=== PATIENT | female | born 1950 | race Caucasian/White ===

== ENCOUNTER 2025-04-07 18:27 | Inpatient (IN) | payer OTHER ==
--- OUTSIDE RECORDS SUMMARY | 2025-04-07 18:31 | XMS REPORT | Continuity of Care Document ---
Author Name Unknown Address [address] [facility] [address] [place] [address] [facility] Address [address] [facility] [place] [address] Care Team Providers Care [employer] Manager Name Role Phone Kirby Cain DO Primary Care Physician + [phone] Meera Judge Attending Clinician Unavaila ble GC_GCBZW_Kaedwin_S Attending Clinician Jonathana KIRBY Lamas Attending Clinician Unavailable Pob, [facility] Main Attending Clinician Richmond Cee MD Attending Clinician RICHMOND CHAKRABORTY Attending Clinician Meera Deal Admitting Clinician Unavaila nia GC_GCBZW_Kaedwin_S Admitting Clinician Valente kramer Payers Payer Name Policy Type Policy Number Effective Date Expirati on Date Source HUMA[employer] (PPO) [id number] [employer] (MEDICARE REPLACEMENT/ADVANTAGE - PPO) [id number] Problems Condition Name Condition Details Condition Category Status Onset Date Resolution Date Last Treatment Date Treating Clinician Comments Source 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 Active 2023-09 0 00:00: 00 [facility] Incomplete uterovagin al prolapse Incomplete Uterovagin al Prolapse Problem Active 7- 00:00: 00 [facility] Atrophic vaginitis Atrophic Vaginitis Problem Active 7 00:00: 00 [facility] Endometria l polyp Endometria l Polyp Problem Active 7 00:00: 00 [facility] Polyp of corpus uteri Polyp of Corpus Uteri Problem Active 7 00:00: 00 [facility] Abnormal uterine bleeding Abnormal Uterine Bleeding Problem Active 3- 00:00: 00 [facility] Postmenopa usal bleeding Postmenopa usal Bleeding Problem Active 3- 00:00: 00 [facility] Abdominal bloating Abdominal Bloating Problem Active 3 00:00: 00 [facility] Urge incontinen ce of urine Urge Incontinen ce of Urine Problem Active 3 00:00: 00 [facility] Increased frequency of urination Increased Frequency of Urination Problem Active 3 00:00: 00 [facility] Fecal incontinen ce with fecal urgency Fecal Incontinen ce with Fecal Urgency Problem Active 3 00:00: 00 [facility] Hyperlipid emia Hyperlipid emia Problem Active 3 00:00: 00 [facility] Essential hypertensi on Essential Hypertensi on Problem Active 3 00:00: 00 [facility] Hypertensi ve disorder Hypertensi ve Disorder Problem Active 3 00:00: 00 [facility] Genuine stress incontinen ce Genuine Stress Incontinen ce Problem Active 3 00:00: 00 [facility] N64.52 - NIPPLE DISCHARGE N64.52 - NIPPLE DISCHARGE Active 04/07/2018 Charisse Ramirez Diagnosis Active - 00:01: 00 2018-04-18 09:11:00 Nafisa Ramirez Allergies, Adverse Reactions, Alerts Allergy Name Allergy Type Status Severity Reaction(s) Onset Date Inactive Date Treating Clinician Comments Source No Known Allergie s DA Active U 0 8- 00:00: 00 [facility] NO KNOWN ALLERGIE S Drug Class Active [facility] Social History Social Habit Start Date Stop Date Quantity Comments Source Gender identity [facility] Sex Assigned At 1950 00:00:00 1950 00:00:00 [facility] Smoking Status Start Date Stop Date Source Never Smoker [facility] Tobacco smoking consumption unknown [facility] Medications Ordered Medication Name Filled Medication Name Start Date Stop Date Current Medication? Ordering Clinician Indication Dosage Frequency Signature (SIG) Comments Components Source atorvastati n 40 mg tablet atorvastati n 40 mg tablet No atorvastat in 40 mg tablet [facility] furosemide 20 mg tablet TAKE 1 TABLET BY MOUTH ONCE DAILY FOR DEPENDENT EDEMA furosemide 20 mg tablet TAKE 1 TABLET BY MOUTH ONCE DAILY FOR DEPENDENT EDEMA No furosemide 20 mg tablet TAKE 1 TABLET BY MOUTH ONCE DAILY FOR DEPENDENT EDEMA [facility] metoprolol succinate ER 25 mg tablet,exte nded release 24 hr metoprolol succinate ER 25 mg tablet,exte nded release 24 hr No metoprolol succinate ER 25 mg tablet,ext ended release 24 hr [facility] pantoprazol e 40 mg tablet,rowena yed release pantoprazol e 40 mg tablet,rowena yed release No pantoprazo le 40 mg tablet,del ayed release [facility] Stool Softener Stool Softener No Stool Softener [facility] estradiol 0.01% (0.1 mg/gram) vaginal cream Insert 0.5 g 3 times a week by vaginal route for 90 days. estradiol 0.01% (0.1 mg/gram) vaginal cream Insert 0.5 g 3 times a week by vaginal route for 90 days. No .5g Q56H estradiol 0.01% (0.1 mg/gram) vaginal cream Insert 0.5 g 3 times a week by vaginal route for 90 days. [facility] amlodipine 5 mg-benazepr il 20 mg capsule amlodipine 5 mg-benazepr il 20 mg capsule No amlodipine 5 mg-benazep ril 20 mg capsule [facility] Vital Signs Vital Name Observation Time Observation Value Comments S don Body Weight 2024-09-11 00:00:00 212 [lb_av] [facility] BMI (Body Mass Index) 2024-09-11 00:00:00 41.4 kg/m2 [facility] Height 2024-09-11 00:00:00 60 [in_i] [facility] BP Systolic 2024-09-11 00:00:00 143 mm[Hg] [facility] BP Diastolic 2024-09-11 00:00:00 93 mm[Hg] [facility] BP Systolic 2024-06-05 00:00:00 151 mm[Hg] [facility] BP Diastolic 2024-06-05 00:00:00 69 mm[Hg] [facility] Height 2024-06-05 00:00:00 60 [in_i] [facility] Body Weight 2024-06-05 00:00:00 208 [lb_av] [facility] BMI (Body Mass Index) 2024-06-05 00:00:00 40.6 kg/m2 [facility] Height 2024-05-10 00:00:00 60 [in_i] [facility] Body Weight 2024-05-10 00:00:00 208 [lb_av] [facility] BMI (Body Mass Index) 2024-05-10 00:00:00 40.6 kg/m2 [facility] BP Systolic 2024-05-10 00:00:00 171 mm[Hg] [facility] BP Diastolic 2024-05-10 00:00:00 73 mm[Hg] [facility] Height 2024-04-04 00:00:00 60 [in_i] [facility] BMI (Body Mass Index) 2024-04-04 00:00:00 40.6 [facility] 2024-04-04 00:00:00 208 [lb_av] [facility] BP Diastolic 2024-03-16 00:00:00 75 mm[Hg] [facility] Height 2024-03-16 00:00:00 60 [in_i] [facility] BP Systolic 2024-03-16 00:00:00 127 mm[Hg] [facility] Body Weight 2024-03-16 00:00:00 208 [lb_av] [facility] BMI (Body Mass Index) 2024-03-16 00:00:00 40.6 kg/m2 [facility] BP Diastolic 2023-12-09 00:00:00 77 mm[Hg] [facility] BMI (Body Mass Index) 2023-12-09 00:00:00 40.8 kg/m2 [facility] Height 2023-12-09 00:00:00 60 [in_i] [facility] BP Systolic 2023-12-09 00:00:00 182 mm[Hg] [facility] Body Weight 2023-12-09 00:00:00 209 [lb_av] [facility] Height 2023-12-02 00:00:00 60 [in_i] [facility] BP Diastolic 2023-12-02 00:00:00 70 mm[Hg] [facility] BMI (Body Mass Index) 2023-12-02 00:00:00 41 kg/m2 [facility] BP Systolic 2023-12-02 00:00:00 140 mm[Hg] [facility] Body Weight 2023-12-02 00:00:00 209.8 [lb_av] [facility] BP Systolic 2023-11-30 00:00:00 144 mm[Hg] [facility] Height 2023-11-30 00:00:00 60 [in_i] [facility] Body Weight 2023-11-30 00:00:00 210.2 [lb_av] [facility] BP Diastolic 2023-11-30 00:00:00 70 mm[Hg] [facility] BMI (Body Mass Index) 2023-11-30 00:00:00 41.1 kg/m2 [facility] Procedure Date / Time Performed Performing Clinician Source Hysterectomy 2024-04-30 00:00:[address] [facility] [address] [address], abdomen + pelvis, w/wo contrast 2023-12-05 00:00:00 [facility] US, transvaginal 2023-12-01 00:00:00 [facility] PHOSPHORUS 2023-04-06 15:30:00 Kirby Cain [facility] URIC ACID 2023-04-06 15:30:00 Kirby Cain [facility] MAGNESIUM 2023-04-06 15:30:00 Kirby Cain [facility] COMP. METABOLIC PANEL ([id number]) 2023-04-06 15:30:00 Kirby Cain [facility] URINALYSIS 2023-04-06 15:30:00 Kirby Cain [facility] PROTEIN CREAT RATIO URINE RANDOM 2023-04-06 15:30:00 Kirby Cain [facility] Tubal Ligation 1981-09-05 00:00:00 [facility] Tonsillectomy [facility] Appendectomy [facility] Encounters Start Date/Time End Date/Time Encounter Type Admission Type Attending [facility] Care Department Encounter ID Source 2024-09-11 00:00:00 2024-09-11 00:00:00 Meera Judge MD: [address], [place] [id number] , Ph. [facility] - GC_GCBZW_Nelly Florez* [id number] [facility] 2024-06-05 00:00:00 2024-06-05 00:00:00 Meera Judge MD: [address], [place] [id number] , Ph. [facility] GC_GCBZW_Nelly Florez* [id number] [facility] 2024-05-10 00:00:00 2024-05-10 00:00:00 NELY Holley: [address], [place] [address] , Ph. [facility] - GC_GCBZW_Nelly Florez* [id number] [facility] 2024-04-30 10:35:00 2024-04-30 10:35:00 Outpatient Meera Stubbs [facility] CINDY [id number] [facility] 2024-04-04 00:00:00 2024-04-04 00:00:00 Meera Judge MD: [address], [place] [address] , Ph. [facility] - GC_GCBZW_Nelly Florez* [id number] [facility] 2024-03-16 00:00:00 2024-03-16 00:00:00 Meera Judge MD: [address], [place] [id number] , Ph. [facility] - GC_GCBZW_Nelly [place]is [place]* [id number] [facility] 2023-12-09 00:00:00 2023-12-09 00:00:00 Meera Judge MD: [address], [place] [address] , Ph. GC_GCBZW_Ka diyala_S [facility] - GC_GCBZW_Nelly [place]* [id number] [facility] 2023-12-05 00:00:00 2023-12-05 00:00:00 Outpatient GC_GCBZW_Ka diyala_S PRIV PRIV [id number] [facility] 2023-12-04 00:00:00 2023-12-04 00:00:00 Outpatient GC_GCBZW_Ka diyala_S PRIV PRIV [id number] [facility] 2023-12-02 00:00:00 2023-12-02 00:00:00 Meera Judge MD: [address], [place] [id number] , Ph. GC_GCBZW_Ka diyala_S [facility] - GC_GCBZW_Nelly paris [place]* [id number] [facility] 2023-12-01 00:00:00 2023-12-01 00:00:00 Meera Judge MD: [address], [place] [id number] , Ph. GC_GCBZW_Ka diyala_S [facility] - GC_GCBZW_Nelly [place]* [id number] [facility] 2023-11-30 00:00:00 2023-11-30 00:00:00 Meera Judge MD: [address], [place] [address] , Ph. GC_GCBZW_Ka chrisa_S [facility] - GC_GCBZW_Nelly Florez* [id number] [facility] 2023-11-25 00:00:00 2023-11-25 00:00:00 Outpatient GC_GCBZW_Ka chrisa_S [facility] [id number] [facility] 2023-04-06 10:00:00 2023-04-06 10:15:00 Early Childhood Specialist Visit [place], [facility] [place] [facility] [id number] [facility] 2023-04-06 10:00:00 2023-04-06 10:00:00 Outpatient Kezia RICHMOND CHAKRABORTY [facility] [id number] [facility] Results Test Description Test Time Test Comments Results Result Co mments Source COMPREHENSIVE METABOLIC [id number] 11:01:00* Test Item Value Reference Range Interpretation Comme nts SODIUM (test code = NA) 143 mmol/L 136-145 N POTASSIUM (test code = K) 4.4 mmol/L 3.4-5.0 N CHLORIDE (test code = CL) 106 mmol/L 98-107 N CARBON DIOXIDE (test code = CO2) 31 mmol/L 21-32 N ANION GAP (test code = GAP) 6 GAP calc 4-15 N GLUCOSE (test code = GLU) 95 MG/DL 70-110 N BLOOD UREA NITROGEN (test code = BUN) 19 MG/DL 7-18 H GLOMERULAR FILTRATION RATE (test code = GFR) 43 estGFR >60 L The Glomerular Filtration Rate is a calculated parameterbased on serum Creatinine, patient age and sex. GFR valuesless than 60 mL/min/1.73 square meters are indicative ofChronic Kidney Disease. Values less than 15 mL/min/1.73square meters indicate Kidney failure. The calculation forGFR is based on the CKD-EPI (202) calculation. This formulais race indifferent and is the recommended formula for GFRby the National Kidney Foundation for Adults.The GFR will not calculate if the sex is unknown or if thepatient's age is <18 years. CREATININE (test code = CREAT) 1.3 MG/DL 0.6-1.0 H TOTAL PROTEIN (test code = PROT) 7.4 G/DL 6.4-8.2 N ALBUMIN (test code = ALB) 3.8 G/DL 3.4-5.0 N GLOBULIN (test code = GLOB) 3.6 GM/dL ALBUMIN/GLOBULIN RATIO (test code = A/G) 1.1 RATIO 1.2-2.2 L CALCIUM (test code = CA) 10.0 MG/DL 8.5-10.1 N BILIRUBIN TOTAL (test code = BILT) 0.7 MG/DL 0.0-1.0 N SGOT/AST (test code = AST) 17 Unit/L 15-37 N SGPT/ALT (test code = ALT) 19 Unit/L 30-65 L ALKALINE PHOSPHATASE TOTAL (test code = ALKP) 137 Unit/L 50-136 H PROTHROMBIN [id number] 10:59:00* Test Item Value Reference Range Interpretation Comme nts PT PATIENT (test code = PTP) 11.3 SECONDS 9.3-12.9 N INTERNATIONAL NORMAL RATIO (test code = INR) 1.03 INR Unit 0.8-1.2 N TARGET INR BY INDICATION Indication INR1. Prophylaxis of venous thrombosis 2.0 - 3.0 (orthopedic surgery), Prophylaxis of venous thrombosis (other than high-risk surgery), Treatment of Deep Vein Thrombosis/Pulmonary Embolism, Prevention of systemic embolism - Tissue heart valves, Acute Myocardial Infarction (to prevent systemic embolism), Valvular heart disease, Acute Myocardial Infarction (to prevent systemic embolism), Valvular heart disease, Atrial Fibrillation, Bileaflet mechanical valve in aortic position.2. Mechanical prosthetic valves (high risk), 2.5 - 3.5 Presence of Lupus Anticoagulant or Antiphospholipid Antibodies, Prevention of systemic embolism - Acute Myocardial Infarction (to prevent recurrent infarct). Comment: MD MORILLO ORDERTHROMBOPLASTIN TIME [id number] 10:59:00* Test Item Value Reference Range Interpretation Comme nts THROMBOPLASTIN TIME PARTIAL (test code = PTT) 34.8 SECONDS 26-35 N Comment: MD MORILLO ORDERURINALYSIS [id number] 10:49:00* Test Item Value Reference Range Interpretation Comme nts UA GLUCOSE DIPSTICK (test code = DGLUU) Negative mg/dL NEGATIVE UA BILIRUBIN DIPSTICK (test code = BILU) Negative NEGATIVE UA KETONE DIPSTICK (test code = KETU) Negative NEGATIVE UA SPECIFIC GRAVITY (test code = SGU) 1.020 1.005-1.015 A UA BLOOD DIPSTICK (test code = KIM) Negative NEGATIVE UA PH DIPSTICK (test code = BAM) 5.5 5.0-7.0 UA PROTEIN DIPSTICK (test code = PROU) Negative mg/dL NEGATIVE UA UROBILINIOGEN DIPSTICK (test code = URO) 0.2 EU/dL See_Comment [Automated message] The system which generated this result transmitted reference range: <2.0 EU/dL. The reference range was not used to interpret this result as normal/abnormal. UA NITRITE DIPSTICK (test code = LAVELL) Negative NEGATIVE UA LEUKOCYTE ESTERASE DIPSTICK (test code = LEUU) Negative NEGATIVE Urine Specimen Type: Clean CatchCBC W/O [id number] 10:45:00* Test Item Value Reference Range Interpretation Comme nts WHITE BLOOD CELL (test code = WBC) 8.2 K/mm3 3.5-11.0 N RED BLOOD CELL (test code = RBC) 5.18 M/mm3 4.70-6.10 N HEMOGLOBIN (test code = HGB) 14.7 G/DL 10.4-14.9 N HEMATOCRIT (test code = HCT) 47.1 % 31.5-44.1 H MEAN CELL VOLUME (test code = MCV) 90.9 Fl 84.5-98.6 N MEAN CELL HGB (test code = MCH) 28.4 pg 27.0-34.2 N MEAN CELL HGB CONCETRATION ( test code = MCHC) 31.2 G/DL 31.5-34.0 L RED CELL DISTRIBUTION WIDTH (test code = RDW) 13.8 SD 11.5-14.5 N PLATELET COUNT (test code = PLT) 262 K/mm3 150-450 N MEAN PLATELET VOLUME (test c ode = MPV) 9.80 fL 7.0-10.5 N test, [id number] 08:18:00* Test Item Value Reference Range Interpretation Comme nts HCG (test code = HCG) negative [facility], LB + [id number] 00:00:00* Test Item Value Reference Range Interpretation Comme nts LMP date: (test code = LMP date:) 09/05/1999 Pap, liquid-based (test code = Pap, liquid-based) nilm nilm source (liquid-based cytology): (test code = source (liquid-based cytology):) vmxpyakv-zfwoxxduyxna-x aginal HPV high risk DNA (non 16/18) (test code = HPV high risk DNA (non 16/18)) not detected not detected HPV high risk DNA type 16 (test code = HPV high risk DNA type 16) not detected not detected HPV high risk DNA type 18 (test code = HPV high risk DNA type 18) not detected not detected [id number] 16:32:03* Test Item Value Reference Range Interpretation Comme nts MAGNESIUM (test code = 3632288487) 1.9 mg/dL 1.7-2.4 Lab Interpretation (test cod e = 88514-5) Normal [facility]2023-08-02 16:32:03* Test Item Value Reference Range Interpretation Comme nts MAGNESIUM (test code = 8175429633) 1.9 mg/dL 1.7-2.4 Lab Interpretation (test cod e = 99732-2) Normal [facility]. METABOLIC PANEL (83850)2023-04-06 16:32:02* Test Item Value Reference Range Interpretation Comme nts NA (test code = 2181413161) 144 mmol/L 135-145 K (test code = 8010571347) 4.4 mmol/L 3.5-5.0 CL (test code = 6475165525) 103 mmol/L 98-108 CO2 TOTAL (test code = 7467017141) 31 mmol/L 23-31 AGAP (test code = 0217257139) 10 2-16 BUN (test code = 6025108459) 19 mg/dL 7-23 GLUCOSE (test code = 8495821571) 153 mg/dL 70-110 H CREATININE (test code = 5832333529) 1.22 mg/dL 0.50-1.04 H TOTAL BILI (test code = 0936168498) 0.8 mg/dL 0.1-1.1 CALCIUM (test code = 4340053384) 10.5 mg/dL 8.6-10.6 T PROTEIN (test code = 8265043142) 7.0 g/dL 6.3-8.2 ALBUMIN (test code = 4410877874) 4.2 g/dL 3.5-5.0 ALK PHOS (test code = 4032614546) 99 U/L 34-122 ALTv (test code = 1742-6) 19 U/L 5-35 AST(SGOT) (test code = 9428635873) 24 U/L 13-40 eGFR (test code = 6268667716) 43.2 mL/min/1.73m2 ASHLYN (test code = ASHLYN) Association of Glomerular Filtration Rate (GFR) and Staging of Kidney Disease* + --+ --+ ------+| GFR (mL/min/1.73 m2) ?| With Kidney Damage ?| ?Without Kidney Damage+ --------+ --------+ +| ?>90 ?| ?Stage one ?| ? Normal ?+ ---+ ---+ -------+| ?60-89 ?| ?Stage two ?| ? Decreased GFR ? + --+ --+ ------+| ?30-59 ?| ?Stage three ?| ? Stage three ? + --+ --+ ------+| ?15-29 ?| ?Stage four ? | ? Stage four ?+ ---+ ---+ -------+| ?<15 (or dialysis) ? ?| ?Stage five ? | ? Stage five ?+ ---+ ---+ -------+ *Each stage assumes the associated GFR level has been in effect for at least three months. ?Stages 1 to 5, with or without kidney disease, indicate chronic kidney disease. Notes: Determination of stages one and two (with eGFR >59mL/min/1.73 m2) requires estimation of kidney damage for at least three months as defined by structural or functional abnormalities of the kidney, manifested by either:Pathological abnormalities or Markers of kidney damage (including abnormalities in the composition of the blood or urine or abnormalities in imaging tests). Lab Interpretation (test code = 24783-0) [facility]3953[facility] 16:32:02* Test Item Value Reference Range Interpretation Comme nts NA (test code = 5709374495) 144 mmol/L 135-145 K (test code = 5435368785) 4.4 mmol/L 3.5-5.0 CL (test code = 2034074719) 103 mmol/L 98-108 CO2 TOTAL (test code = 2482387673) 31 mmol/L 23-31 AGAP (test code = 4664646124) 10 2-16 BUN (test code = 4303817391) 19 mg/dL 7-23 GLUCOSE (test code = 1500644642) 153 mg/dL 70-110 H CREATININE (test code = 5435825819) 1.22 mg/dL 0.50-1.04 H TOTAL BILI (test code = 1114074526) 0.8 mg/dL 0.1-1.1 CALCIUM (test code = 2192829803) 10.5 mg/dL 8.6-10.6 T PROTEIN (test code = 8698608966) 7.0 g/dL 6.3-8.2 ALBUMIN (test code = 1793670879) 4.2 g/dL 3.5-5.0 ALK PHOS (test code = 7131046413) 99 U/L 34-122 ALTv (test code = 1742-6) 19 U/L 5-35 AST(SGOT) (test code = 0178756874) 24 U/L 13-40 eGFR (test code = 3660329978) 43.2 mL/min/1.73m2 ASHLYN (test code = ASHLYN) Association of Glomerular Filtration Rate (GFR) and Staging of Kidney Disease* + --+ --+ ------+| GFR (mL/min/1.73 m2) ?| With Kidney Damage ?| ?Without Kidney Damage+ --------+ --------+ +| ?>90 ?| ?Stage one ?| ? Normal ?+ ---+ ---+ -------+| ?60-89 ?| ?Stage two ?| ? Decreased GFR ? + --+ --+ ------+| ?30-59 ?| ?Stage three ?| ? Stage three ? + --+ --+ ------+| ?15-29 ?| ?Stage four ? | ? Stage four ?+ ---+ ---+ -------+| ?<15 (or dialysis) ? ?| ?Stage five ? | ? Stage five ?+ ---+ ---+ -------+ *Each stage assumes the associated GFR level has been in effect for at least three months. ?Stages 1 to 5, with or without kidney disease, indicate chronic kidney disease. Notes: Determination of stages one and two (with eGFR >59mL/min/1.73 m2) requires estimation of kidney damage for at least three months as defined by structural or functional abnormalities of the kidney, manifested by either:Pathological abnormalities or Markers of kidney damage (including abnormalities in the composition of the blood or urine or abnormalities in imaging tests). Lab Interpretation (test code = 92541-8) [facility] 16:31:42* Test Item Value Reference Range Interpretation Comme nts PHOSPHORUS (test code = 2603970748) 3.1 mg/dL 2.5-5.0 Lab Interpretation (test cod e = 99152-6) [facility] [id number] 16:31:42* Test Item Value Reference Range Interpretation Comme nts URIC ACID (test code = 8613175081) 7.3 mg/dL 2.9-6.0 H Lab Interpretation (test cod e = 50271-4) [facility] 16:31:42* Test Item Value Reference Range Interpretation Comme nts PHOSPHORUS (test code = 0601612293) 3.1 mg/dL 2.5-5.0 Lab Interpretation (test cod e = 16336-9) Normal [facility] [id number] 16:31:42* Test Item Value Reference Range Interpretation Comme nts URIC ACID (test code = 4342916216) 7.3 mg/dL 2.9-6.0 H Lab Interpretation (test cod e = 63256-3) Abnormal [facility] Notes Date/Time Note Provider Source 2024-05-07 09:28:00 [id number] [address] [place] [address] PATIENT NAME: NICOLASA CARRANZA ADMIT DATE: 04/30/24 ACCOUNT NO: [id number] ROOM NO: AGE: 73 REPORT TYPE: OPERATIVE REPORT SEX: F ADMITTING PHYSICIAN: ATTENDING PHYSICIAN: Meera Judge MD OPERATION DATE: 04/30/2024 PREOPERATIVE DIAGNOSES: Postmenopausal bleeding, endometrial polyp and uterine prolapse. POSTOPERATIVE DIAGNOSES: Postmenopausal bleeding, endometrial polyp and endometriosis, no uterine prolapse. PROCEDURES PERFORMED: Robotic-assisted total laparoscopic hysterectomy, bilateral salpingo-oophorectomy, pelvic washings, endometriosis excision and the peritoneal implant excision. SURGEON: Meera Judge MD [employer] SALES REPRESENTATIVE: Adrianna Soliz ANESTHESIA: General endotracheal. FINDINGS: Endometriosis on the left lateral wall and left periureteric endometriosis, anterior abdominal wall implants, point C was -5 preop and -8 after cuff closure and there was no need for a colpopexy for level 1 support. COMPLICATIONS: No complications. ESTIMATED BLOOD LOSS: 50 mL SPECIMENS: Removed uterus, bilateral tubes, and ovaries, pelvic washings, left lateral wall, left periureteric and right anterior abdominal wall endometriosis. FLUIDS: 1300. URINE OUTPUT: 100. APPROACH: Hysteroscopic and laparoscopic. COUNTS: Correct. CONDITION: Stable. INDICATIONS: The patient is a 73-year-old presenting with postmenopausal bleeding. She had an ultrasound that showed a thickened endometrium, which was investigated with a hysteroscopy. Then, the hysteroscopy showed endometrial PATIENT NAME: NICOLASA CARRANZA polyp, which on biopsy was unremarkable for atypia or was negative for atypia and malignancy. On interval followup and repeat hysteroscopy, the polyp was still persistent despite removal of portions of it. It was at the same size as before, so we discussed about the different options of endometrial polypectomy and hysteroscopy with MyoSure in the hospital and continued observation or hysterectomy with pelvic washings understanding that there could be endometrial cancer underlying and if it is present that she could potentially need more surgery depending on the degree of invasion. She will definitely be referred to a gynecologic oncologist. She was offered a referral at this time for postoperative if cancer was diagnosed, and the patient wanted to proceed with surgery here understanding about the referral postop. After medical clearance was obtained, she was brought into the hospital. Preoperative consent was obtained again after understanding the risks and benefits and recovery and complications. DESCRIPTION OF PROCEDURE: After placed in supine fashion on operating table, general anesthesia was given. She was placed in dorsal lithotomy position using Rey stirrups. Arms were tucked by the side. Abdomen prepped with ChloraPrep, vagina, and perineum with Betadine. Then, two grams of Ancef were given. SCDs were started. Positioning was checked, timeout was done and procedure started. Speculum was placed to expose the cervix. Anterior lip was grasped with a single tooth tenaculum. Cervix dilated to 16-Ukrainian, gradually from 8 and 3.5 cm cup uterine manipulator was introduced and cup fixed around the cervix. Stearns was placed to drain the bladder and attached to gravity drainage. This area was then draped. One cm supraumbilical incision made with a scalpel using open laparoscopy technique. Fascia was incised, tagged with 0 Vicryl sutures. Peritoneum entered sharply. Rivera introduced after adequate insufflation, site of entry was checked and was unremarkable. A 8 robotic left lateral port 8, 10, left upper quadrant. AirSeal port and two right, 8 robotic ports were placed in the usual fashion. The robot was docked from the patient's left side camera arm attached, targeting was complete. The patient was placed in 23 degrees of Trendelenburg. All the other arms were attached to the robot instruments inserted and tips advanced to the mid pelvis under direct vision. Once all the ports were burped, I went over to the console for starting the procedure. After inspection of the pelvic cavity, pelvic washings were performed. This was done before the patient was placed in [facility]. Pelvic washings were performed before placing the patient in [facility]. Then, the robot was docked and back to the console. The endometriosis implants were clearly visible in the left lateral wall periureteric area right anterior abdominal wall. No other implants were significantly noted. These were pale however, they were deep and infiltrating. So, the plan was to excise all these implants that could be sides of endometrial tissue in case patient has endometrial malignancy that this would be meaningful in terms of understanding the stage and the tissue pathology. PATIENT NAME: NICOLASA CARRANZA Endometriosis excision and the implant in the left lateral wall was dissected by starting on the lateral wall peritoneum lateral to the ureter and superior. Once this was opened up, the ureter was dissected away from the medial leaf of the broad ligament by sharp dissection and cautery as needed. Then, the implants were from the underlying periureter and the periureteric endometriosis was excised all the way deep to the healthy fat. This was then handed out. Then, the second specimen was the lateral wall endometriosis that was present between the ureter and the uterosacral ligament. This was excised. Then, the third was implant on the anterior abdominal wall, which were circumscribed properly with the tip of a single con of the scissors and excised. After all these were handed out, then proceeded with a hysterectomy. Lateral wall peritoneum parallel to the IP was opened up from the starting at the round ligament, superior to it and coming up to the IP. Then, the medial aspect of the broad ligament incision that was already made between the ureter and the sidewall was extended superiorly to isolate the IP. Then, the round ligament was also isolated by making an incision in the peritoneum inferior to it and taken down to the peritoneal reflection. Then, similar dissection was performed on the right side, taking the round ligament by opening them to the peritoneum superior and inferior to it creating a pedicle. Then, dissection of the peritoneum carried parallel to the IP. Then, making an opening between the round ligament between the IP and the ureter, isolating the IP pedicle. Then, peritoneum dissected towards the uterus on the posterior broad ligament and then peritoneum of the right broad ligament anteriorly was taken down to join the bladder flap. Bladder was dissected inferior to the anterior vaginal wall. Then, the vessel sealer was taken through port #1. Now IP ligament was cauterized and cut, round ligament on the left side as well. Then, on the right side, both IP and round ligament, broad ligaments were taken down. The posterior broad ligaments were dissected all the way down, on the left side was already dissected due to the prior dissection. Anterior broad ligament was completely dissected with the vessel sealer on the right side. The broad ligament was dissected with the vessel sealer until the vessels were exposed and skeletonized. The vessels were then cauterized and cut with the bipolar graspers and monopolar scissors. Cardinal ligaments were also taken down in a similar fashion, then, circumferential on both sides. Then, circumferential colpotomy performed, the monopolar hook blade with the monopolar single con of the scissors. After completely finishing the colpotomy, the specimen was pulled out through the vagina. Vaginal occluder was placed. Thorough irrigation and suction was performed at the level of the cuff. Then, cuff was closed with the help of #1 Vicryl sutures, two simple sutures on both ends and three [id number] in the middle. There was excellent closure and apposition of the cuff was completely hemostatic. All pedicles were checked. The ureters had no evidence of electrical, mechanical or thermal injury to them. Ureters did not have any electrical, mechanical or thermal injury to them. Bowel was unremarkable as well. Upper abdominal surfaces were completely unremarkable. After the instruments were removed, Robot was undocked. I scrubbed back into the case and ports were removed under direct vision. Gas was desufflated after the patient was flattened out and umbilical port was removed as well as the AirSeal port. Fascia at the umbilicus was closed with 0 Vicryl sutures, tagged sutures tied to each other, simple 4-0 Monocryl sutures to close all skin PATIENT NAME: NICOLASA CARRANZA incisions. Vaginal occluder and Stearns were removed. Instrument and sponge counts were done and were correct at the end of the case. There was no necessity for colpopexy as suspension was excellent at the apex after the cuff closure. She was recovered from anesthesia and taken to PACU in stable condition. Her family was debriefed about her procedure. She has 1 week and 4 week postop appointment at the office. Dictated By: Meera Judge MD Date Dictated: 05/07/2024 09:28:56 Date Transcribed: 05/07/2024 13:58:03 KERRI/MOHINDER Receipt ID: [id number] Authenticated by Meera Judge MD On 06/18/2024 07:31:11 AM at 0731 PATIENT NAME: NICOLASA CARRANZA [facility] 2024-04-30 18:24:00 [facility] ([facility]) Post Anesthesia Evaluation REPORT#:[id number] REPORT STATUS: Signed REPORT INITIALIZATION DATE:04/30/24 TIME:1823 PATIENT: NICOLASA CARRANZA UNIT #: [id number] ROOM/BED: : 49 AGE: 73 SEX: F ATTEND: Meera Judge MD ADM AUTHOR: Maddison Landon MD REPT SERVICE DT/TIME: 04/30/24 182 * ALL edits or amendments must be made on the electronic/computer document * Post Anesthesia Evaluation Anes. changes from pre-op eval ORM Surgeries: Surgery Date and Time: 04/30/2024 1445 Primary Procedure: L/S ROBOTIC ASSIST HYSTERECTOMY, Anesthetic: GETA Date: 04/30/24 Level of consciousness: no change, patient awake, able to answer questions, participate in this eval. Neurological assessment: Neuromuscular block: resolved as expected Musculoskeletal: moves all extremities, sensation intact, returned to pre- status Vital signs: Last Documented: Result Date Time Pulse Ox 93 04/30 1819 B/P 160/69 04/30 1819 O2 Delivery Room air 04/30 1819 Temp 35.9 04/30 1819 Pulse 80 04/30 181 Resp 17 04/30 1819 O2 Flow Rate 5 04/30 1745 Cardiovascular: no change, CV system stable, vital signs stable Respiratory/Airway: respiratory system stable, maintains without support Pain: adequately controlled Hydration: adequate, euvolemic Temp status: normothermic Presence of N/V: no Anesthesia complications: no Other changes requiring f/u: none Conclusions: no apparent anes. issues Additional comments: Patient stable for discharge from PACU to phase II of care. at 1827 RPT #: [id number] END OF REPORT [facility] 2024-04-30 17:21:00 [facility] ([facility]) Brief Op Note REPORT#:[id number] REPORT STATUS: Signed REPORT INITIALIZATION DATE:04/30/24 TIME:172 PATIENT: NICOLASA CARRANZA UNIT #: [id number] ROOM/BED: : 49 AGE: 73 SEX: F ATTEND: Meera Judge MD ADM AUTHOR: Meera Judge MD REPT SERVICE DT/TIME: 04/30/24 1721 * ALL edits or amendments must be made on the electronic/computer document * Op/Inv Proc Note - Brief Pre-procedure diagnosis: PMB, endometrial polyp, uterine prolapse Post-procedure diagnosis: same as pre procedure dx, endometriosis Procedures performed: RTLH BSO pelvic washings endometriosis excision, peritoneal implants excision Primary Surgeon: bahman Vacuum Cleaner Mechanic(s): none ([place], tammie), tammie deras Anesthesia: general anesthesia Findings: endometriosis left lat wall and periureteric endo, ant abd wall implants, C-5 preop and -8 after cuff closure, therefore no need seen for USLS Complications: none Estimated blood loss in ml's: 50 Specimens removed/altered: uterus bilat tubes and ovaries, washings, left lat wall, left blair ureter, rigth anterior abdominal wall Fluids: 1300 Urine output: 100 Approach: maurice Counts: Sponge count: correct Instrument count: correct at 1727 RPT #: [id number] END OF REPORT [facility] 2023-04-06 10:00:00 Formatting of this n ote is different from the original. Images from the original note were not included. Venipuncture collection performed by clean technique on the left anticubitus. Total of 1 attempts were made. Slight pressure and a bandage/dressing were applied to the site(s). The patient experienced no complications. The following specimens were processed according to instructions and sent to [facility] laboratories per lab order on 04/06/2023 : LT BLUE SST 6 RED LAV PPT DK GREEN (LiHep) DK GREEN (SodH) COOL DK BLUE (K2) DK BLUE (S) ACD Blood Culture NIPT/NTD Patient has been identified by and name and was provided with cup, antiseptic towelette, and clean catch instructions. 4 urine specimen(s) sent. Unpreserved 4 Urine Culture Aptima tube Other urine [facility] 2018-04-18 09:13:00 DUCTOGRAPHY RIGHT BREAST WITH DIGITAL MAMMOGRAPHY: 04/18/2018 CLINICAL: N64.52 Nipple Discharge HISTORY: 67 yo female referred by Dr. Torres for evaluation of a spontaneous single duct RIGHT bloody nipple discharge off and on x 2 months. No family history of breast cancer. Her last bilateral mammogram was 05/24/2017. Correlation is made to exam dated: 05/24/2017 mammogram - [facility]. A ductography was performed for the discharging duct opening 6 o'clock right nipple. The skin was prepped in the usual manner. A small droplet of bloody fluid was manually discharged from the patient's right nipple. The appropriate discharging duct opening was visualized and a blunt tip cannula was placed into the duct. A total of 0.4 cc of non-ionic contrast was instilled into the duct opening. The patient's breast was placed in the mammography unit and imaging was obtained. Spot compression subareolar digital CC magnification, ML magnification, and MLO magnification views were obtained with square and round paddles. Opacification of the 6:00 ductal network extends out posteriorly to at least 9 cm from the nipple. There is a subtle persistent intraluminal filling defect questioned at the first order ductal bifurcation at 6:00, retroareolar region, approximately 2 cm from nipple seen on CC and ML projections. There appears to be abruptly terminating ducts distal to the tiny defect, best seen on early post constrast (square paddle) ML view. The remainder of the ductal network appears unremarkable. IMPRESSION: DUCTOGRAPHY 1. Opacification of the 6:00 ductal network, RIGHT breast, with subtle persistent intraluminal filling defect questioned, 2 cm from nipple as described above. A contrast enhanced breast MRI is suggested to better assess the bloody nipple discharge and to better delineate the subtle ductography findings. 2. Pre injection RIGHT mammogram showed no changes since the outside negative mammogram from [facility] dated . RECOMMENDATION: 1. CLINICAL FOLLOW-UP AND CORRELATION PER DR. TORRES. 2. SUGGEST FURTHER IMAGING EVALUATION WITH A CONTRAST ENHANCED BREAST MRI. This exam was interpreted at [id number] for [facility]. Michell Bradshaw M.D. sg/:04/19/2018 12:19:16 Quill Layer(s): RT Devang(R)(Ally), [facility]"
[2025-04-07 19:32] LABS: Absolute Lymphocytes (CBC) 1.6 K/uL (0.7-4.9); Hematocrit 41.6 % (36.0-45.0); Hemoglobin 13.9 g/dL (12.0-15.0); MCH 29.1 pg (27.0-35.0); MCHC 33.4 g/dL (32.0-36.0); MCV 87.2 fL (80-100); MPV 8.1 fL (7.6-11.3); Nucleated RBC Absolute Count 0.0 (0-0); Nucleated Red Blood Cells % 0.1 % (0-0); RBC Red Blood Cell Count 4.77 M/uL (3.86-4.86); White Blood Count 10.40 thou/uL (4.3-10.9)
[2025-04-07] MEDS ORDERED: NITROGLYCERIN 0.4 MG/TAB SL ONE (19:38)
[2025-04-07] MEDS ORDERED: ASPIRIN 81 MG CHEWABLE TABLET ONE (19:38)
[2025-04-07 20:03] LABS: Anion Gap 9.6 mEq/L (5.0-15.0); BUN Blood Urea Nitrogen 22.0 mg/dL (7-18); Glucose Level 115.0 mg/dL (74-106); Potassium 3.6 mEq/L (3.5-5.1)
[2025-04-07 20:14] LABS: Troponin High Sensitivity 489.6 pg/mL (<58.9)
[2025-04-07 20:38] LABS: PT Prothrombin Time 12.8 SECONDS (10-13.0); Protime INR 1.14
--- NOTE | 2025-04-07 20:52 | RAD REPORT ---
EXAMINATION: ONE VIEW CHEST XR CLINICAL INDICATION: Female, 74 years old.,CHEST PAIN TECHNIQUE: Frontal chest projection is submitted. Examination is limited by patient positioning and t echnique. COMPARISON: 01/24/2023 FINDINGS: The lungs are well inflated and clear. No pneumothorax or sizable effusion. The heart is normal in s ize. Mediastinal contours are unremarkable. IMPRESSION: No acute intrathoracic abnormalities.
--- NOTE | 2025-04-07 20:59 | EDPHYS ---
Physician Documentation [facility] Name: Ivelisse Carrera Age: 74 yrs Sex: Female : 1950 Arrival Date: 04/07/2025 Time: 18:27 Bed 18 Private MD: ED Physician Maikol Montague HPI: 04/07 18:35 This 74 yrs old Female presents to ER via Ambulatory with complaints of Chest Pain. cp 18:35 The patient or guardian reports chest pain that is located primarily in the substernal cp area. Onset: 45 minute(s) ago. The pain does not radiate. 18:35 Associated signs and symptoms: Pertinent positives: shortness of breath, Pertinent cp negatives: abdominal pain, cough, lower extremity pain, lower extremity swelling, syncope, vomiting. 18:35 The chest pain is described as a pressure. Duration: The patient or guardian reports a cp single episode, that is still ongoing, and unchanged. Historical: - Allergies: 18:37 No Known Allergies; ss - PMHx: 18:37 acid reflux; High Cholesterol; Hypertension; Hypertensive disorder; ss - Immunization history:: Adult Immunizations unknown. - Infectious Disease History:: Denies. - Social history:: Smoking status: Patient denies any tobacco usage or history of. ROS: 18:40 Constitutional: Negative for body aches, chills, fever, poor PO intake, cp 18:40 Cardiovascular: Positive for chest pain, Negative for edema, palpitations, cp 18:40 Respiratory: Positive for shortness of breath, Negative for cough, wheezing, cp 18:40 Abdomen/GI: Negative for abdominal pain, vomiting, diarrhea, constipation, 18:40 Neuro: Negative for altered mental status, dizziness, headache, syncope, near syncope, weakness, 18:40 All other systems are negative, Exam: 18:38 ECG was reviewed by the Attending Physician. cp 18:45 Constitutional: The patient appears in no acute distress, alert, awake, cp non-diaphoretic, non-toxic, well developed, well nourished, uncomfortable, 18:45 Head/Face: Normocephalic, atraumatic. cp 18:45 Eyes: Periorbital structures: appear normal, Conjunctiva: normal, no exudate, no injection, Sclera: no appreciated abnormality, Lids and lashes: appear normal, bilaterally, 18:45 ENT: External ear(s): are unremarkable, Nose: is normal, Mouth: Lips: moist, Oral mucosa: moist, Posterior pharynx: Airway: no evidence of obstruction, patent, 18:45 Neck: ROM/movement: is normal, is supple, without pain, no range of motions limitations, 18:45 Chest/axilla: Inspection: normal, 18:45 Cardiovascular: Rate: normal, Rhythm: regular, Edema: is not appreciated, JVD: is not appreciated, 18:45 Respiratory: the patient does not display signs of respiratory distress, Respirations: normal, no use of accessory muscles, no retractions, labored breathing, is not present, Breath sounds: are clear throughout, no decreased breath sounds, no stridor, no wheezing, 18:45 Abdomen/GI: Inspection: abdomen appears normal, Palpation: abdomen is soft and non-tender, in all quadrants, 18:45 Back: pain, is absent, ROM is normal, 18:45 Neuro: Orientation: to person, place \T\ time. Mentation: is normal, Cerebellar function: is grossly normal, Motor: moves all fours, strength is normal, Sensation: is normal, Vital Signs: 18:35 BP 185 / 107; Pulse 80; Resp 22; Pulse Ox 97% on R/A; Height 5 ft. 4 in. ; Pain 7/10; ss 19:50 BP 157 / 75; Pulse 74; Resp 20; Pulse Ox 95% on R/A; Weight 96.62 kg; Height 5 ft. 4 tb4 in. ; Pain 4/10; 19:58 BP 139 / 65; Pulse 89; Resp 21; Pulse Ox 97% on R/A; Pain 4/10; tb4 21:36 BP 145 / 72; Pulse 81; Resp 18; Pulse Ox 97% on R/A; Pain 0/10; tb4 22:23 BP 140 / 69; Pulse 79; Resp 20; Pulse Ox 99% on R/A; Pain 0/10; tb4 19:50 Body Mass Index 36.56 (96.62 kg, 162.56 cm) tb4 18:35 Pain Scale: Adult ss 19:50 Pain Scale: Adult tb4 19:58 Pain Scale: Adult tb4 21:36 Pain Scale: Adult tb4 22:23 Pain Scale: Adult tb4 MDM: 19:00 Differential diagnosis: acute myocardial infarction, anxiety, cholecystitis, cp Cholelithiasis pancreatitis, pleurisy, pneumonia, pneumothorax, pulmonary embolus, stable angina, thoracic aortic disection, unstable angina. 20:35 Management of patient was discussed with the following: Senior Engineering Technician: DR Jacques consulted cp for cardiology who wants 1 inch of nitro paste placed on chest. 20:58 Medical Screening Exam initiated cp 21:05 The patient was given aspirin in the Emergency Department. 21:05 Data reviewed: vital signs, nurses notes, lab test result(s), EKG, radiologic studies, cp plain films, and as a result, I will admit patient. I considered the following discharge prescriptions or medication management in the emergency department Medications were administered in the Emergency Department. See MAR. Independent interpretation of the following test(s) in the Emergency Department EKG: See my EKG interpretation above. Care significantly affected by the following chronic conditions: Hypertension, hyperlipidemia. Counseling: I had a detailed discussion with the patient and/or guardian regarding the historical points, exam findings, and any diagnostic results supporting the discharge/admit diagnosis, lab results, radiology results. Response to treatment: the patient's symptoms have markedly improved after treatment. 04/07 18:34 Order name: Basic Metabolic Panel; Complete Time: 20:19 ss 04/07 18:34 Order name: CBC with Diff; Complete Time: 20:19 ss 04/07 18:34 Order name: Troponin HS; Complete Time: 20:19 ss 04/07 18:49 Order name: Magnesium cp 04/07 20:29 Order name: PT-INR; Complete Time: 21:01 br2 04/07 18:34 Order name: XRAY Chest (1 view); Complete Time: 21:01 ss 04/07 18:34 Order name: EKG; Complete Time: 18:34 ss 04/07 18:34 Order name: Cardiac monitoring; Complete Time: 19:40 ss 04/07 18:34 Order name: EKG - Nurse/Tech; Complete Time: 18:34 ss 04/07 18:34 Order name: IV Saline Lock; Complete Time: 19:40 ss 04/07 18:34 Order name: Labs collected and sent; Complete Time: 19:40 ss 04/07 18:34 Order name: O2 Per Protocol; Complete Time: 19:40 ss 04/07 18:34 Order name: O2 Sat Monitoring; Complete Time: 19:40 ss EC:38 Rate is 77 beats/min. Rhythm is regular. HI interval is normal. QRS interval is normal. cp QT interval is normal. T waves are Inverted in lead aVR. Interpreted by me. Reviewed by me. Administered Medications: 19:49 Drug: Nitroglycerin Sublingual 0.4 mg Sublingual once; every five minute if needed x3 tb4 Route: Sublingual; 20:51 Follow up: Response: No adverse reaction; Pain is decreased tb4 19:49 Drug: Aspirin PO Chewable Tablet 324 mg PO once; 81 mg tablets x 4 Route: PO; tb4 20:51 Follow up: Response: No adverse reaction tb4 21:14 Drug: Heparin ([place]-Bolus No thrombolytic) - HEParin IVP 60 units/kg IVP once; Max 5000 tb4 units {Co-Signature: [email or web address] (Marilia Capellan RN).} Route: IVP; Site: left antecubital; 21:32 Follow up: Response: No adverse reaction tb4 21:15 Drug: Heparin ([place] Drip) 12 units/kg/hr - ([place] [address] units, D5W IV 500 ml) IV at tb4 calculated rate Per protocol; Max initial rate 1000 units/hr {Co-Signature: [email or web address] (Marilia Capellan RN).} Route: IV; Rate: calculated rate; Site: left antecubital; 21:31 Drug: Nitroglycerin Transdermal Ointment 2 % 1 inches Transdermal once Route: tb4 Transdermal; Site: anterior chest wall; 22:23 Follow up: Response: No adverse reaction tb4 Disposition: 04/08 07:13 Co-signature as Attending Physician, Maikol Montague MD I reviewed the patient's care rn provided by the Advanced Practice Provider and agree with the diagnosis and treatment plan. 23:24 Chart complete. cp Disposition Summary: 04/07/25 20:58 Hospitalization Ordered Notes: Hospitalization Status: Inpatient Admission cp Provider: Alan Castrejon cp Location: Telemetry/MedSurg (Inpatient) cp Condition: Stable cp Problem: new cp Symptoms: have improved cp Bed/Room Type: Standard Room Assignment: 401(04/07/25 22:08) rv1 Diagnosis - Subsequent non-ST elevation (NSTEMI) myocardial infarction cp - Hypertensive heart disease without heart failure cp Forms: - Medication Reconciliation Form cp - SBAR form cp - Leadership Thank You Letter cp Signatures: Dispatcher [employer] EDMaikol Marie MD MD rn Blanchard, Shelby RN RN ss He Garcia PA PA cp Villegas, Rebecca rv1 Madi Castle RN RN rg5 rBii Galvan RN RN tb4 Marilia Capellan RN ss12 Corrections: (The following items were deleted from the chart) 04/07 22:08 20:58 cp rv1 23:42 18:40 This 74 yrs old Female presents to ER via Ambulatory with complaints of Chest cp Pain. cp
--- NOTE | 2025-04-07 20:59 | ER ---
Nurse's Notes [facility] Name: Ivelisse Carrera Age: 74 yrs Sex: Female : 1950 Arrival Date: 04/07/2025 Time: 18:27 Bed 18 Private MD: Diagnosis: Subsequent non-ST elevation (NSTEMI) myocardial infarction;Hypertensive heart disease without heart failure Presentation: 04/07 18:35 Chief complaint: Patient states: Chest pain and shortness of breath that began 40 ss minutes ago while chasing a dog in the rain. Coronavirus screen: Client denies travel out of the [place] in the last 14 days. Ebola Screen: Patient denies exposure to infectious person. Patient denies travel to an Ebola-affected area in the 21 days before illness onset. Initial Sepsis Screen: Does the patient meet any 2 criteria? No. Patient's initial sepsis screen is negative. Does the patient have a suspected source of infection? No. Patient's initial sepsis screen is negative. Risk Assessment: Do you want to hurt yourself or someone else? Patient reports no desire to harm self or others. Onset of symptoms was April 07, 2025. 18:35 Method Of Arrival: Ambulatory ss 18:35 Acuity: KERRI 3 ss Historical: - Allergies: 18:37 No Known Allergies; ss - PMHx: 18:37 acid reflux; High Cholesterol; Hypertension; Hypertensive disorder; ss - Immunization history:: Adult Immunizations unknown. - Infectious Disease History:: Denies. - Social history:: Smoking status: Patient denies any tobacco usage or history of. Screenin:45 [facility] ED Fall Risk Assessment (Adult) History of falling in the last 3 months, rg5 including since admission No falls in past 3 months (0 pts) Confusion or Disorientation No (0 pts) Intoxicated or Sedated Impaired Gait No (0 pts) Mobility Assist Device Used No (0 pt) Altered Elimination No (0 pt) Score/Fall Risk Level 0 - 2 = Low Risk Oriented to surroundings, Maintained a safe environment, Hourly rounding (assess needs \T\ fall precautionary measures) done. Abuse screen: Denies threats or abuse. Nutritional screening: No deficits noted. Tuberculosis screening: No symptoms or risk factors identified. 19:51 [facility] ED Fall Risk Assessment (Adult) History of falling in the last 3 months, tb4 including since admission No falls in past 3 months (0 pts) Confusion or Disorientation No (0 pts) Intoxicated or Sedated No (0 pts) Impaired Gait No (0 pts) Mobility Assist Device Used No (0 pt) Altered Elimination No (0 pt) Score/Fall Risk Level 0 - 2 = Low Risk Oriented to surroundings, Maintained a safe environment. Abuse screen: Denies threats or abuse. Nutritional screening: No deficits noted. Tuberculosis screening: No symptoms or risk factors identified. Assessment: 18:45 General: Appears in no apparent distress. Behavior is calm, cooperative, appropriate rg5 for age. 18:45 Pain: Complains of pain in chest Pain does not radiate. Pain began 1 hour ago. Neuro: rg5 Level of Consciousness is awake, alert, obeys commands, Oriented to person, place, time, situation. Cardiovascular: Reports chest pain. 19:51 Reassessment: Patient is alert, oriented x 3, equal unlabored respirations, skin tb4 warm/dry/pink. See triage note. General: Appears in no apparent distress. Behavior is calm, cooperative. Pain: Complains of pain in mid-sternal area Pain does not radiate. Pain currently is 4 out of 10 on a pain scale. Quality of pain is described as pressure, Pain began 2 hours ago. 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 Full function Gait is steady, Speech is normal, Facial symmetry appears normal. Cardiovascular: Reports chest pain. Respiratory: Airway is patent Trachea midline Respiratory effort is even, unlabored, Respiratory pattern is regular, symmetrical. GI: No deficits noted. No signs and/or symptoms were reported involving the gastrointestinal system. : No deficits noted. No signs and/or symptoms were reported regarding the genitourinary system. Musculoskeletal: Circulation, motion, and sensation intact. Capillary refill < 3 seconds, is brisk, in bilateral fingers. Range of motion: intact in all extremities. Vital Signs: 18:35 BP 185 / 107; Pulse 80; Resp 22; Pulse Ox 97% on R/A; Height 5 ft. 4 in. ; Pain 7/10; ss 19:50 BP 157 / 75; Pulse 74; Resp 20; Pulse Ox 95% on R/A; Weight 96.62 kg; Height 5 ft. 4 tb4 in. ; Pain 4/10; 19:58 BP 139 / 65; Pulse 89; Resp 21; Pulse Ox 97% on R/A; Pain 4/10; tb4 21:36 BP 145 / 72; Pulse 81; Resp 18; Pulse Ox 97% on R/A; Pain 0/10; tb4 22:23 BP 140 / 69; Pulse 79; Resp 20; Pulse Ox 99% on R/A; Pain 0/10; tb4 19:50 Body Mass Index 36.56 (96.62 kg, 162.56 cm) tb4 18:35 Pain Scale: Adult ss 19:50 Pain Scale: Adult tb4 19:58 Pain Scale: Adult tb4 21:36 Pain Scale: Adult tb4 22:23 Pain Scale: Adult tb4 ED Course: 18:31 Patient arrived in ED. al6 18:35 He Garcia PA is PHCP. cp 18:35 Maikol Montague MD is Attending Physician. cp 18:36 Triage completed. ss 18:37 Arm band placed on right wrist. ss 18:37 EKG completed in triage. Results shown to MD. ss 18:45 Patient has correct armband on for positive identification. Bed in low position. Call rg5 light in reach. Side rails up X 1. Client placed on continuous cardiac and pulse oximetry monitoring. NIBP monitoring applied. quality assurance monitor chassis on. Pulse ox on. NIBP on. Door closed. Noise minimized. Warm blanket given. 18:45 No provider procedures requiring assistance completed. Missed attempt(s): 22 gauge in rg5 right antecubital area. Patient maintains SpO2 saturation greater than 95% on room air. 18:48 Madi Castle, CHRIS is Primary Nurse. rg5 19:40 Inserted saline lock: 22 gauge in left antecubital area, using aseptic technique. Blood ts3 collected. Flushed with 10 mL NS. 19:40 Initial lab(s) drawn, by ED staff, sent to lab. ts3 20:20 XRAY Chest (1 view) In Process Unspecified. EDMS 20:56 Alan Castrejon, RN is Hospitalizing Provider. cp Administered Medications: 19:49 Drug: Nitroglycerin Sublingual 0.4 mg Sublingual once; every five minute if needed x3 tb4 Route: Sublingual; 20:51 Follow up: Response: No adverse reaction; Pain is decreased tb4 19:49 Drug: Aspirin PO Chewable Tablet 324 mg PO once; 81 mg tablets x 4 Route: PO; tb4 20:51 Follow up: Response: No adverse reaction tb4 21:14 Drug: Heparin (WV-Bolus No thrombolytic) - HEParin IVP 60 units/kg IVP once; Max 5000 tb4 units {Co-Signature: ss12 (Marilia Capellan RN).} Route: IVP; Site: left antecubital; 21:32 Follow up: Response: No adverse reaction tb4 21:15 Drug: Heparin (WV Drip) 12 units/kg/hr - ([place] [address] units, D5W IV 500 ml) IV at tb4 calculated rate Per protocol; Max initial rate 1000 units/hr {Co-Signature: ss12 (Marilia Capellan RN).} Route: IV; Rate: calculated rate; Site: left antecubital; 21:31 Drug: Nitroglycerin Transdermal Ointment 2 % 1 inches Transdermal once Route: tb4 Transdermal; Site: anterior chest wall; 22:23 Follow up: Response: No adverse reaction tb4 Medication: 18:45 VIS not applicable for this client. rg5 Outcome: 20:58 Decision to Hospitalize by Provider. nicolas 04/08 00:17 Patient left the ED. tb4 Signatures: Dispatcher [employer] EDMS Nena Moss, RN RN ss He Garcia PA PA cp Madi Castle RN RN rg5 Yashira Gonzalez Terri, RN RN tb4 Shahnaz Ivan 3 Marilia Capellan RN ss12
[2025-04-07] MEDS ORDERED: HEPARIN 5000 UNIT/ML 1 ML VIAL ONE (21:01)
[2025-04-07] MEDS ORDERED: HEPARIN/D5W 25,000 UNIT/500 ML BAG IV ONE (21:01)
[2025-04-07] MEDS ORDERED: NITROGLYCERIN 1 GM PKT TD ONE (21:21)
[2025-04-07] MEDS ORDERED: ZOLPIDEM TARTRATE 5 MG TABLET PO PRN (22:08)
[2025-04-07] MEDS ORDERED: MORPHINE 4 MG/ML SYR IV PRN (22:08)
[2025-04-07] MEDS ORDERED: NITROGLYCERIN 0.4 MG/TAB SL PRN (22:08)
--- NOTE | 2025-04-07 22:18 | P.HP ---
Certification for Inpatient Patient admitted to: Inpatient With expected LOS: >2 Midnights Patient will require the following post-hospital care: None Practitioner: I am a practitioner with admitting privileges, knowledge of patient current condition, hospital course, and medical plan of care. Services: Services provided to patient in accordance with Admission requirements found in Title 42 Section 412.3 of the Code of Federal Regulations Patient History Date of Service: 04/07/25 Reason for admission: NSTEMI. History of Present Illness: Patient is a pleasant 74-year-old female with past medical history of hypercholesteremia, GERD, essential hypertension, occasional bilateral lower extremities edema with no associated CHF, who presents to the ER today complaining of midsternal chest pain, radiating to her right. Patient states one of her dog ran out of the house, states she went out of the house and ran after the dog, states she was able to bring the dog back into the house, states while she was sitting in the chair, she suddenly developed severe midsternal chest pain radiating down to her right arm. Patient describes her chest pain as pressure type chest pain with initial pain scale of 7/10, and she described her right arm as heavy during the initial episode. Patient denies having associated shortness of breath. Patient denies of any prior history of heart attack, but has extensive family history of coronary artery disease including a brother who had quadruple bypass. On admission assessment, patient was fully awake, alert a nd oriented x 3, denies of any chest pain or shortness of breath at this time, denies of any heaviness on her right arm at this time. According to report received from ER practitioner, states Dr. Jacques was contacted and notified of patient current status. The plan is to take patient to [facility] in AM. Patient initial troponin was 489.6, and a repeat went up to 4080.6. Patient immediately evaluated after receiving second troponin result. Patient denies of any chest pain or shortness of breath at this time, and resting in bed comfortably. Course in ER: Patient had a chest x-ray done, impression: No acute intrathoracic abnormalities. Patient received heparin 5000 units subcu, nitro sublingual 0.4 mg, nitroglycerin ointment 1 g, and aspirin 325 4 mg. Allergies No Known Allergies Allergy (Unverified 06/05/17 23:20) Home Medications: Amlodipine Besylate/Benazepril [Lotrel 5-20 mg Capsule] 04/08/25 Atorvastatin Calcium [Lipitor] 40 mg PO BEDTIME 04/08/25 Furosemide [Lasix] 20 mg PO DAILY 04/08/25 Metoprolol Succinate [Toprol Xl] 25 mg PO DAILY 04/08/25 Mirabegron [Mirabegron ER] 25 mg PO 04/08/25 Pantoprazole [Protonix Tab] 40 mg PO 04/08/25 - Past Medical/Surgical History Diabetic: No -: Essential hypertension. -: Edema lower extremities. -: Hypercholesteremia. -: GERD -: Hysterectomy. - Social History Smoking Status: Never smoker Alcohol use: No CD- Drugs: No Caffeine use: No Place of Residence: Home Review of Systems 10-point ROS is otherwise unremarkable Cardiovascular: Chest Pain Physical Examination - Physical Exam General: Alert, Oriented x3, Cooperative HEENT: Atraumatic, Normocephalic, PERRLA, Mucous membr. moist/pink, Sclerae nonicteric Neck: Supple, 2+ carotid pulse no bruit, No LAD, Without JVD or thyroid abnormality Respiratory: Clear to auscultation bilaterally, Normal air movement Cardiovascular: No edema, Normal pulses, Regular rate/rhythm, Normal S1 S2, Abnormal S3, No gallops, No rubs, No murmurs Capillary refill: <2 Seconds Gastrointestinal: Normal bowel sounds, Soft and benign, Non-distended, W/out hepatomegaly, No ascites, No tenderness, No masses, No rebound, No guarding Musculoskeletal: No clubbing, No swelling, No contractures, No erythema, No tenderness, No warmth Integumentary: No rashes, No breakdown, No significant lesion, No tenderness/swelling, No erythema, No warmth, No cyanosis Neurological: Normal gait, Normal speech, Normal strength at 5/5 x4 extr, Normal tone, Sensation intact, Cranial nerves 3-12 intact, Normal reflexes 2+, Normal affect Lymphatics: No axilla or inguinal lymphadenopathy - Studies Laboratory Data (last 24 hrs) 04/07/25 04/07/25 04/07/25 19:24 19:24 19:24 WBC 10.40 Hgb 13.9 Hct 41.6 Plt Count 236 PT 12.8 INR 1.14 Sodium Potassium BUN Creatinine Glucose Magnesium 1.8 04/07/25 19:24 WBC Hgb Hct Plt Count PT INR Sodium 141 Potassium 3.6 BUN 22 H Creatinine 1.31 H Glucose 115 H Magnesium Female Exam - Breasts Breasts: Normal configuration Assessment and Plan - Plan Patient is a 74-year-old female admitted to inpatient with diagnosis of NSTEMI, initial troponin 489.6, and second troponin 4080.6. Patient denies of any chest pain or shortness of breath at this time. Dr. Jacques aware of patient admission and planning to take patient to [facility] in AM. (1)NSTEMI. -Initiate chest pain protocol including morphine 4 mg IV as needed every 4 hours, nitroglycerin 0.4 mg sublingual as needed every 5 minutes x 3. - Oxygen supplement via nasal cannula 2 L. -Troponin every 8 hours x 3. -EKG every 8 hours x 3. -Order echocardiogram. -NPO after midnight for possible cardiac cath in AM. -D5 1/2 at 50 mL an hour since patient will be n.p.o. after midnight. -Aspirin 81 mg p.o. daily. -Consult computer analyst. -Telemetry. (2)Chronic hypercholesteremia. -Continue atorvastatin 40 mg p.o. nightly. (3)Chronic hypertension. -Continue metoprolol XL 25 mg p.o. daily. -Continue Lotrel 5-20 mg daily. -Order one-time dose of amlodipine 5 mg p.o. stat due to elevated blood pressure at night. (4)Chronic GERD. - Continue Protonix 40 mg p.o. daily. (5)Explained the entire treatment plan to the patient, and present at bedside, solicit questions answered and voiced understanding. Discharge Plan: Residential Plan to discharge in: 72 Hours - Advance Directives Does patient have a Living Will: No Does patient have a Durable POA for Healthcare: No - Code Status/Comfort Care Code Status Assessed: Yes Code Status: Full Code Critical Care: No Time Spent Managing Pts Care (In Minutes): 55
[2025-04-07] MEDS ORDERED: HEPARIN/D5W 25,000 UNIT/500 ML BAG IV SCH (23:00)
[2025-04-08 00:37] VITALS: BMI 35.9
[2025-04-08] MEDS: D5LR 1,000 ML IV SCH (00:59)
[2025-04-08] MEDS: AMLODIPINE 5 MG TAB PO ONE (03:56)
[2025-04-08 04:45] LABS: Absolute Lymphocytes (CBC) 2.4 K/uL (0.7-4.9); Hematocrit 37.6 % (36.0-45.0); Hemoglobin 12.9 g/dL (12.0-15.0); MCH 29.8 pg (27.0-35.0); MCHC 34.2 g/dL (32.0-36.0); MCV 87.0 fL (80-100); MPV 8.9 fL (7.6-11.3); Nucleated RBC Absolute Count 0.0 (0-0); Nucleated Red Blood Cells % 0.2 % (0-0); RBC Red Blood Cell Count 4.32 M/uL (3.86-4.86); White Blood Count 8.50 thou/uL (4.3-10.9)
[2025-04-08 05:07] LABS: Anion Gap 7.7 mEq/L (5.0-15.0); BUN Blood Urea Nitrogen 21.0 mg/dL (7-18); Glucose Level 114.0 mg/dL (74-106); Potassium 3.7 mEq/L (3.5-5.1)
[2025-04-08] MEDS ORDERED: NITROGLYCERIN/D5W 50 MG/250 ML BTL IV ONE (08:11)
[2025-04-08] MEDS ORDERED: HEPA 1000U/500MLS 2,000 UNIT/1,000 ML BAG IV ONE (08:11)
[2025-04-08] MEDS ORDERED: LIDOCAINE 1% 20 ML MDV ONE (08:12)
[2025-04-08] MEDS ORDERED: HEPARIN 10,000 UNIT/10 ML VIAL IV ONE (08:12)
[2025-04-08] MEDS ORDERED: ATROPINE SULF 1 MG/10 ML SYR IV ONE (08:12)
[2025-04-08] MEDS ORDERED: CLOPIDOGREL 75 MG TABLET ONE (08:12)
[2025-04-08] MEDS ORDERED: TICAGRELOR 90 MG TABLET PO ONE (08:13)
[2025-04-08] MEDS ORDERED: ASPIRIN 325 MG TAB ONE (08:13)
[2025-04-08] MEDS ORDERED: HEPARIN 5000 UNIT/ML 1 ML VIAL ONE (08:13)
[2025-04-08] MEDS: METOPROLOL XL 25 MG TAB PO SCH (08:14)
[2025-04-08] MEDS: FUROSEMIDE 20 MG TABLET PO SCH (08:14)
[2025-04-08] MEDS: BENAZEPRIL 20 MG TAB PO SCH (08:15)
[2025-04-08] MEDS: PANTOPRAZOLE 40MG TABLET PO SCH (08:15)
[2025-04-08] MEDS: ASPIRIN EC 81 MG TAB PO SCH (08:15)
[2025-04-08] MEDS: MIDAZOLAM HCL 2 MG/2 ML INJ ONE (08:18)
[2025-04-08] MEDS: FENTANYL CITR 100 MCG/2 ML ONE (08:18)
[2025-04-08] MEDS: MIRABEGRON 25 MG PO SCH (08:18)
[2025-04-08] MEDS: AMLODIPINE 5 MG TAB PO SCH (08:19)
[2025-04-08] MEDS ORDERED: NA CHLORIDE 0.9% 500 ML ONE (08:37)
[2025-04-08] MEDS ORDERED: AMLODIPINE BESYLATE PO SCH (09:00)
[2025-04-08] MEDS ORDERED: [UNRECOGNIZED DRUG - OTHER] PO SCH (09:00)
[2025-04-08] MEDS ORDERED: BENAZEPRIL PO SCH (09:00)
--- NOTE | 2025-04-08 09:47 | P.PN ---
Date of Service: 04/08/25 Subjective: Reports she had chest pain from around 6 PM to 10 PM last night Chest pain resolved at this time N.p.o. maintained on heparin drip No other acute events overnight ROS: 10 point ROS as noted above, otherwise negative Physical exam GEN: Alert, oriented, NAD HEENT: Normal conjunctiva, sclera anicteric CV: Regular rate and rhythm, no edema Pulm: Nonlabored respirations on room air ABD: Soft, nontender, nondistended MSK: No joint tenderness Integumentary: No rashes Neuro: Normal speech, normal affect Vitals reviewed Assessment: NSTEMI Hypertension Hyperlipidemia GERD Plan: NSTEMI N.p.o. for coronary angiogram today Continue heparin drip Echocardiogram ordered Await further recommendation from cardiology Hypertension Hyperlipidemia GERD Continue home medications when verified DVT PPX:Heparin drip Code status:Full code Time Spent Managing Pts Care (In Minutes): 35
--- NOTE | 2025-04-08 11:29 | P.CNS ---
Date of Consult: 04/08/25 Chief Complaint: NSTEMI. History of Present Illness: Patient with PMH of HTN, HLD, presented with angina after exertion, denies any other cardiac symptoms. Allergies No Known Allergies Allergy (Unverified 06/05/17 23:20) Home medications list reviewed: Yes Home Medications: Amlodipine Besylate/Benazepril [Lotrel 5-20 mg Capsule] 04/08/25 Atorvastatin Calcium [Lipitor] 40 mg PO BEDTIME 04/08/25 Furosemide [Lasix] 20 mg PO DAILY 04/08/25 Metoprolol Succinate [Toprol Xl] 25 mg PO DAILY 04/08/25 Mirabegron [Mirabegron ER] 25 mg PO 04/08/25 Pantoprazole [Protonix Tab] 40 mg PO 04/08/25 - Past Medical/Surgical History Diabetic: No -: Essential hypertension. -: Edema lower extremities. -: Hypercholesteremia. -: GERD -: Hysterectomy. - Social History Alcohol use: No CD- Drugs: No Caffeine use: No Place of Residence: Home Review of Systems 10-point ROS is otherwise unremarkable Physical Examination Temp Pulse Resp BP Pulse Ox 97.6 F 63 17 181/72 H 98 04/08/25 08:00 04/08/25 08:19 04/08/25 08:00 04/08/25 08:19 04/08/25 08:00 General: Alert, In no apparent distress HEENT: Atraumatic, PERRLA, Mucous membr. moist/pink, EOMI, Sclerae nonicteric Neck: Supple, 2+ carotid pulse no bruit, No LAD, Without JVD or thyroid abnormality Respiratory: Clear to auscultation bilaterally, Normal air movement Cardiovascular: Regular rate/rhythm, Normal S1 S2 Gastrointestinal: Normal bowel sounds, No tenderness Musculoskeletal: No tenderness Integumentary: No rashes Neurological: Normal gait, Normal speech, Normal tone, Normal affect Lymphatics: No axilla or inguinal lymphadenopathy Laboratory Data (last 24 hrs) 04/07/25 04/07/25 04/07/25 19:24 19:24 19:24 WBC 10.40 Hgb 13.9 Hct 41.6 Plt Count 236 PT 12.8 INR 1.14 Sodium Potassium BUN Creatinine Glucose Magnesium 1.8 04/07/25 19:24 WBC Hgb Hct Plt Count PT INR Sodium 141 Potassium 3.6 BUN 22 H Creatinine 1.31 H Glucose 115 H Magnesium - Problems (1) NSTEMI (non-ST elevated myocardial infarction) Current Visit: Yes Status: Acute Plan: coronary angiogram done and s/p PCI LAD with Syenrgy KELLY ASA 81 mg daily for life Brilinta 90 mg po BID Lipitor 80 mg daily (2) HTN (hypertension) Current Visit: Yes Status: Acute Plan: continue Benzapril 20 mg daily continue Toprol XL 25 mg daily continue Amlodipine 5 mg daily (3) HLD (hyperlipidemia) Current Visit: Yes Status: Acute Plan: increase Lipitor to 80 mg daily Lipid panel in 6 weeks
--- NOTE | 2025-04-08 12:37 | ECHO ---
HEIGHT: 5 ft 4 in WEIGHT: 209 lb 0 oz DATE OF STUDY: 04/08/[address]: Willie Oliva NP 2-DIMENSIONAL: YES M.MODE: YES DOPPLER: YES COLOR FLOW: YES TDS: NO PORTABLE: YES DEFINITY: NO BUBBLE STUDY: NO DIAGNOSIS: NSTEMI CARDIAC HISTORY: CATHERIZATION:YES SURGERY: NO PROSTHETIC VALVE: NO PACEMAKER: NO MEASUREMENTS (cm) DIASTOLIC (NORMALS) SYSTOLIC (NORMALS) IVSd 0.8 (0.6-1.2) LA Diam 3.7 (1.9-4.0) LVEF 60-65% LVIDd 5.2 (3.5-5.7) LVIDs 3.2 (2.0-3.5) %FS 39% LVPWd 1.0 (0.6-1.2) Ao Diam 2.8 (2.0-3.7) 2 DIMENSIONAL ASSESSMENT: RIGHT ATRIUM: NORMAL LEFT ATRIUM: NORMAL RIGHT VENTRICLE: NORMAL LEFT VENTRICLE: NORMAL TRICUSPID VALVE: TRACE TRICUSPID REGURGITATION MITRAL VALVE: NORMAL PULMONIC VALVE: NORMAL AORTIC VALVE: NORMAL PERICARDIAL EFFUSION: NONE AORTIC ROOT: NORMAL LEFT VENTRICULAR WALL MOTION: NORMAL. DOPPLER/COLOR FLOW: GRADE I DIASTOLIC DYSFUNCTION. COMMENTS: 1. NORMAL LEFT VENTRICULAR SYSTOLIC FUNCTION. LEFT VENTRICULAR EJECTION FRACTION 60-65%. NORMAL WALL MOTION. 2. GRADE I DIASTOLIC DYSFUNCTION. TECHNOLOGIST: CHAI WEI
[2025-04-08 15:57] VITALS: O2SAT 97
[2025-04-08] MEDS ORDERED: ATORVASTATIN 40 MG TAB PO SCH (21:00)
[2025-04-08] MEDS: ATORVASTATIN 80 MG TAB PO SCH (21:04)
[2025-04-08] MEDS: TICAGRELOR 90 MG TABLET PO SCH (21:04)
--- NOTE | 2025-04-08 22:16 | OP ---
Date of Procedure: 04/08/2025 Surgeon: Buck Vázquez Procedures Performed: 1. Selective coronary angiogram. 2. PCI of the LAD with Synergy 3.0 x 16 mm drug-eluting stent. Indication For Procedure: Nuk-[id number] SC. Complications: None. Estimated Blood Loss: Less than 50 cc. Access: Right ulna, closed by TR band. Sedation Time: 30 minutes with 1 of Versed and 25 of fentanyl. Description Of Procedure: After risks, benefits, and alternatives were explained to the patient, the patient agreed to proceed with procedure and signed informed consent. The patient was brought back to the cath lab nurse, prepped and draped in sterile fashion. Time-out was performed. Sedation was admini stered. Next, right ulnar access was obtained using ultrasound-guided micropuncture technique. Tige r 4 catheter was advanced over a J-wire to the aortic root. Selective angiogram was done using same catheter. After that, catheter was exchanged for an XB LAD 3.5 mm guide. Heparin was administered. ACT was therapeutic. Runthrough wire was passed across the lesion. We pre-dilated the mid LAD lesi on with an NC 2.5 mm balloon. Next, Synergy 3.0 x 16 mm drug-eluting stent was placed across the les ion that is postdilated with a stent balloon. Repeat angiogram shows NASIMA-3 flow. Wire was removed. Catheter was removed over a J-wire. Sheath was removed. TR band was applied. Hemostasis was achi eved and the patient was moved back to recovery in stable condition. Findings: 1. Left main, normal. 2. LAD, proximal to mid 99% disease, status post PCI as above, then mid 40% disease at the edge of th e stent. Distally, the artery is small with mild luminal irregularities. 3. Left circ; proximal mild luminal irregularities with mid 40% to 50% disease, then mild luminal irr egularities. 4. OM1, small, mild luminal irregularities. 5. OM2 with mid 40% disease, then mild luminal irregularities. 6. RCA, tortuous, heavy disease with mid 30% disease and then distal mild luminal irregularities. 7. RPDA, small artery, very tortuous with diffuse 70% disease. Assessment: 1. Significant mid LAD disease, status post PCI with Synergy 3.0 x 16 mm drug-eluting stent. 2. Mild to moderate left circ and OM2 disease. 3. Significant diffuse RPDA disease, artery is small with diffuse disease. No possible intervention on that artery. Plan: 1. Aspirin 81 mg daily for life. 2. Brilinta 180 mg p.o. x1 was given in the cath lab nurse, continue Brilinta 90 mg p.o. b.i.d. for 12 isabelle hs. 3. Continue aggressive medical treatment for CAD. CADEN/BENJY Voice ID: [id number] Report ID: [id number]
[2025-04-09 05:08] LABS: Absolute Lymphocytes (CBC) 1.7 K/uL (0.7-4.9); Hematocrit 40.5 % (36.0-45.0); Hemoglobin 13.4 g/dL (12.0-15.0); MCH 29.0 pg (27.0-35.0); MCHC 33.0 g/dL (32.0-36.0); MCV 88.0 fL (80-100); MPV 8.4 fL (7.6-11.3); Nucleated RBC Absolute Count 0.0 (0-0); Nucleated Red Blood Cells % 0.1 % (0-0); RBC Red Blood Cell Count 4.60 M/uL (3.86-4.86); White Blood Count 9.20 thou/uL (4.3-10.9)
[2025-04-09 05:27] LABS: Anion Gap 9.6 mEq/L (5.0-15.0); BUN Blood Urea Nitrogen 19.0 mg/dL (7-18); Glucose Level 120.0 mg/dL (74-106); Potassium 3.6 mEq/L (3.5-5.1)
[2025-04-09 08:54] VITALS: BP 141/71; TEMP 97.6
--- NOTE | 2025-04-09 12:02 | P.PN ---
Subjective Date of Service: 04/09/25 Chief Complaint: NSTEMI. Subjective: No new changes, No C/O voiced, Tolerating diet, Ambulating, Improving Review of Systems 10-point ROS is otherwise unremarkable Physical Examination - Vital Signs Temperature: 97.6 F Blood Pressure: 141/71 Pulse: 67 Respirations: 16 Pulse Ox (%): 96 - Physical Exam General: Alert, In no apparent distress HEENT: Atraumatic, PERRLA, EOMI Neck: Supple, JVD not distended Respiratory: Clear to auscultation bilaterally, Normal air movement Cardiovascular: Regular rate/rhythm, Normal S1 S2 Gastrointestinal: Normal bowel sounds, No tenderness Musculoskeletal: No tenderness Integumentary: No rashes Neurological: Normal speech, Normal tone, Normal affect Lymphatics: No axilla or inguinal lymphadenopathy - Studies Medications List Reviewed: Yes Assessment And Plan - Current Problems (Diagnosis) (1) NSTEMI (non-ST elevated myocardial infarction) Current Visit: Yes Status: Acute Plan: coronary angiogram done and s/p PCI LAD with Syenrgy KELLY ASA 81 mg daily for life Brilinta 90 mg po BID Lipitor 80 mg daily (2) HTN (hypertension) Current Visit: Yes Status: Acute Plan: continue Benzapril 20 mg daily continue Toprol XL 25 mg daily continue Amlodipine 5 mg daily (3) HLD (hyperlipidemia) Current Visit: Yes Status: Acute Plan: increase Lipitor to 80 mg daily Lipid panel in 6 weeks
[2025-04-09] MEDS: PNEUMOCOCCAL VACCINE 0.5 ML IMVAC ONE (13:00)
--- NOTE | 2025-04-09 14:10 | P.DS ---
Admission Date: 04/07/25 Discharge Date: 04/09/25 Disposition: ROUTINE DISCHARGE Discharge Condition: GOOD Reason for Admission: NSTEMI. Brief History of Present Illness: Diagnosis NSTEMI Hypertension Hyperlipidemia GERD HPI 04/07/2025 Patient is a pleasant 74-year-old female with past medical history of hypercholesteremia, GERD, essential hypertension, occasional bilateral lower extremities edema with no associated CHF, who presents to the ER today complaining of midsternal chest pain, radiating to her right. Patient states one of her dog ran out of the house, states she went out of the house and ran after the dog, states she was able to bring the dog back into the house, states while she was sitting in the chair, she suddenly developed severe midsternal chest pain radiating down to her right arm. Patient describes her chest pain as pressure type chest pain with initial pain scale of 7/10, and she described her right arm as heavy during the initial episode. Patient denies having associated shortness of breath. Patient denies of any prior history of heart attack, but has extensive family history of coronary artery disease including a brother who had quadruple bypass. On admission assessment, patient was fully awake, alert and oriented x 3, denies of any chest pain or shortness of breath at this time, denies of any heaviness on her right arm at this time. According to report rece ived from ER practitioner, states Dr. Jacques was contacted and notified of patient current status. The plan is to take patient to [facility] in AM. Patient initial troponin was 489.6, and a repeat went up to 4080.6. Patient immediately evaluated after receiving second troponin result. Patient denies of any chest pain or shortness of breath at this time, and resting in bed comfortably. Course in ER: Patient had a chest x-ray done, impression: No acute intrathoracic abnormalities. Patient received heparin 5000 units subcu, nitro sublingual 0.4 mg, nitroglycerin ointment 1 g, and aspirin 325 4 mg. Hospital Course: Patient was admitted for further evaluation of midsternal chest pain/pressure radiating to right arm after exertion. Troponin elevated, EKG with T wave inversions in lead aVR, cardiology consulted and she was taken to heart cath with PCI placed to LAD. She has tolerated the procedure well, and will follow up with cardiology outpatient for continued aggressive medical management. She was seen on morning rounds hemodynamically stable, tolerating p.o. diet, and ambulating independently. Dr. Vázquez has cleared her for discharge Physical exam GEN: AAOx3, NAD HEENT: Normal conjunctiva, sclera anicteric CV: Regular rate and rhythm, no edema Pulm: Nonlabored respirations on room air ABD: Soft and nontender on palpation, active bowel sounds MSK: No joint tenderness Integumentary: No rashes Neuro: Normal speech, normal affect Vital Signs/Physical Exam: Temp Pulse Resp BP Pulse Ox 97.6 F 67 16 141/71 H 96 04/09/25 12:01 04/09/25 12:01 04/09/25 12:01 04/09/25 12:01 04/09/25 12:01 Laboratory Data at Discharge: WBC 9.20 thou/uL (4.3-10.9) 04/09/25 04:49 Hgb 13.4 g/dL (12.0-15.0) 04/09/25 04:49 Hct 40.5 % (36.0-45.0) 04/09/25 04:49 Plt Count 231 thou/uL (152-406) 04/09/25 04:49 PT 12.8 SECONDS (10-13.0) 04/07/25 19:24 INR 1.14 04/07/25 19:24 APTT 140.3 SECONDS (27.2-37.4) H* 04/08/25 03:55 Sodium 144 mEq/L (136-145) 04/09/25 04:49 Potassium 3.6 mEq/L (3.5-5.1) 04/09/25 04:49 BUN 19 mg/dL (7-18) H 04/09/25 04:49 Creatinine 1.01 mg/dL (0.55-1.02) 04/09/25 04:49 Glucose 120 mg/dL (74-106) H 04/09/25 04:49 Magnesium 1.8 mg/dL (1.6-2.4) 04/07/25 19:24 Home Medications: Amlodipine Besylate/Benazepril [Lotrel 5-20 mg Capsule] 04/08/25 Furosemide [Lasix*] 20 mg PO DAILY 08/04/25 Metoprolol Succinate [Toprol Xl*] 25 mg PO DAILY 04/08/25 Mirabegron [Mirabegron ER] 25 mg PO 04/08/25 Pantoprazole [Protonix Tab*] 40 mg PO 04/08/25 Amlodipine [Norvasc*] 5 mg PO DAILY tab 04/09/25 Aspirin [Aspirin EC 81 MG] 81 mg PO DAILY 30 Days #30 tab 04/09/25 Atorvastatin Calcium [Lipitor] 80 mg PO BEDTIME 30 Days #30 tab 04/09/25 Benazepril HCl [Lotensin*] 20 mg PO DAILY tab 04/09/25 Ticagrelor [Brilinta*] 90 mg PO BID 30 Days #60 tab 04/09/25 New Medications: Aspirin [Aspirin EC 81 MG] 81 mg PO DAILY 30 Days #30 tab Ticagrelor [Brilinta*] 90 mg PO BID 30 Days #60 tab Atorvastatin Calcium [Lipitor] 80 mg PO BEDTIME 30 Days #30 tab Physician Discharge Instructions: 1. Please call and schedule a follow-up appointment with your PCP in 3-5 days - Please follow-up with your PCP for medication refills/adjustments 2. Please call and schedule a follow-up appointment with Dr. Vázquez in 1-2 weeks -Recheck lipid panel in 6 weeks 3. Continue heart healthy diet 4. activity restrictions do not lift greater than 10 pounds for one week 5. Return to the ED if symptoms worsen New medications Brilinta 90 mg twice daily Lipitor 80 mg daily, this is an increased dose from your previous prescription, follow-up with Dr. Amaya for possible reduction in the dosage and months to come Aspirin 81 mg daily Diet: AHA Activity: No lifting more than 10 lbs Followup: Sinan Cain DO [Primary Care Provider] - Buck Vázquez MD [ACTIVE - CAN ADMIT] - Time spent managing pt's care (in minutes): 50
== END 2025-04-09 16:18 | disposition home or self-care (01) | DRG 322 ==
LOC: ER 18:27 → ERHOLD 21:51 → 4TH 04-08 00:06
PROVIDERS: ADMIT Hospitalist; ATTEND Internal Medicine
PROC: 027034Z Dilation of Coronary Artery, One Artery with Drug-eluting Intraluminal Device, Percutaneous Approach (ICD-10-PCS; principal; 2025-04-08)
PROC: 4A023N7 Measurement of Cardiac Sampling and Pressure, Left Heart, Percutaneous Approach (ICD-10-PCS; 2025-04-08)
PROC: B2111ZZ Fluoroscopy of Multiple Coronary Arteries using Low Osmolar Contrast (ICD-10-PCS; 2025-04-08)
DX: I21.4 Non-ST elevation (NSTEMI) myocardial infarction (principal); I10 Essential (primary) hypertension; E78.00 Pure hypercholesterolemia, unspecified; I11.9 Hypertensive heart disease without heart failure; K21.9 Gastro-esophageal reflux disease without esophagitis; I25.119 Atherosclerotic heart disease of native coronary artery with unspecified angina pectoris; Z79.899 Other long term (current) drug therapy; Z90.710 Acquired absence of both cervix and uterus
CPT/HCPCS: 36415; 71045; 76937; 80048; 83735; 84484; 85025; 85347; 85610; 85730; 93005; 93306; 93454; 96374; 99152; 99285; C1725; C1874; C1877; C1893; C9600; J0461; J1644; J2003; J2250; J3010; J7040; J7121; Q9967